=== PATIENT | male | born 1950 | race Caucasian/White ===

== ENCOUNTER → 2020-06-15 | Outpatient (CLI) | payer MEDICARE, BC | END | disposition home or self-care (01) | LOC: LABWHC1 16:30 | PROVIDERS: ATTEND Internal Medicine | DX: U07.1 COVID-19 (principal) | CPT/HCPCS: U0003; C9803 ==

== ENCOUNTER → 2021-06-22 | Outpatient (CLI) | payer MEDICARE, BC ==
--- NOTE | 2021-06-22 16:36 | FL ---
EXAMINATION TYPE: FL barium swallow DATE OF EXAM: 06/22/2021 COMPARISON: None HISTORY: Dysphasia food sticking in throat x2 months TECHNIQUE: Double air contrast technique FINDINGS: Fluoroscopy time: 20 seconds. Images: 122 The esophagus dilates to normal caliber and has a normal contour the gastroesophageal junction. A few tertiary contractions are evident during the examination. There is some hesitancy of emptying the es ophagus during the exam. No gastroesophageal junction stenosis is evident. There is incomplete stripp ing of the esophageal bolus in the horizontal drinking position. A "lesion" was reported by the patie nt. No discrete abnormality to account for this finding is evident on the esophagram IMPRESSION: 1. Mild presbyesophagus.
== END | disposition home or self-care (01) ==
LOC: RADUSWWP 09:51
PROVIDERS: ATTEND Otolaryngology
DX: K22.89 Other specified disease of esophagus (principal)
CPT/HCPCS: 74220

== ENCOUNTER → 2021-11-14 | Outpatient (CLI) | payer MEDICARE, BC ==
--- NOTE | 2021-11-14 15:00 | XR ---
EXAMINATION TYPE: XR chest 2V DATE OF EXAM: 11/14/2021 2:52 PM COMPARISON: None TECHNIQUE: XR chest 2V Frontal and lateral views of the chest. CLINICAL INDICATION:Male, 71 years old with history of R06.02 SOB; FINDINGS: Lungs/Pleura: There is no evidence of pleural effusion, focal consolidation, or pneumothorax. Pulmonary vascularity: Unremarkable. Heart/mediastinum: Cardiomediastinal silhouette is unremarkable. Musculoskeletal: No acute osseous pathology. IMPRESSION: No acute cardiopulmonary disease/process.
== END | disposition home or self-care (01) ==
LOC: RADXRMAIN 14:36
PROVIDERS: ATTEND Nurse Practitioner Family
DX: R06.02 Shortness of breath (principal)
CPT/HCPCS: 71046

== ENCOUNTER → 2021-12-06 | Outpatient (CLI) | payer MEDICARE, BC ==
--- NOTE | 2021-12-06 12:54 | CA ---
Exercise Stress Test Report Name: Garcia Burgos Exam Date: 12/06/2021 10:51 Exam Location: [facility] Stress Ht (in): 71 Wt (lb): 192 BSA: 2.07 Ordering Phys: Grayson Jacob MD Referring Phys: Sarah Xavier [facility] Technologist: Des Sky Age: 71 Gender: M : 1950 Procedure CPT: Indications: R07.9 CHEST PAIN ICD-10 Codes: Patient History: Family history of heart disease Medications: Meds past 24 hrs: Pretest Chest Pain: STRESS TEST Bonifacio Protocol Exercise Duration (min:sec): 07:[address] Depressions (mm): 2 Angina Score: 0 Das Score: -2.88 Resting HR (bpm): 71 Peak HR (bpm): 125 Resting BP (mmHg): 133 / 87 Peak BP (mmHg): 187 / 73 MPHR: 149 Target HR: 127 % MPHR: 84 METS: 8.9 Total Dose: Peak Dose: Atropine: Double Product: 26139 BP Response: Normal Resting Blood Pressure - Appropriate Stress Termination: Dizziness Stress Symptoms: Dizziness Stress Summary: The patient's target heart rate was achieved ECG ANALYSIS Resting ECG: Sinus rhythm. Normal conduction. No arrhythmias. Normal repolarization. Stress EC mm ST horizontal change. During stress in the inferolateral leads. CONCLUSIONS 1. Good exercise tolerance 2. Abnormal electrocardiographic stress testing with [address] depression at peak exercise that resolved in recovery. 3. No associated chest discomfort 4. If clinically indicated an imaging stress test will be helpful Dr. Zen Lee MD (Electronically Signed) Final Date: 06 December 2021 12:53
== END | disposition home or self-care (01) ==
LOC: RADNMMAIN 10:30
PROVIDERS: ATTEND Internal Medicine Geriatric Medicine
DX: R07.9 Chest pain, unspecified (principal); R94.31 Abnormal electrocardiogram [ECG] [EKG]
CPT/HCPCS: 93017

== ENCOUNTER → 2021-12-27 | Outpatient (CLI) | payer MEDICARE, BC ==
[2021-12-27 15:37] LABS: HCT 37.1 % (39.6-50.0); HGB 11.9 g/dL (13.0-17.0); MCH 29.7 pg (27.0-32.0); MCHC 32.1 g/dL (32.0-37.0); MCV 92.5 fL (80.0-97.0); Mean Platelet Volume 9.9 fL (9.5-12.2); NRBC Per 100 WBC 0 /100 WBCS (0.0-0.0); Platelet Count 262 X 10*3/uL (140-440); RBC 4.01 X 10*6/uL (4.40-5.60); RDW 13.7 % (11.5-14.5); WBC 5.81 X 10*3/uL (4.50-10.00)
[2021-12-27 16:07] LABS: Chol/HDL Ratio 9.33 Ratio; LDL Cholesterol,Calculated 249.3 mg/dL (0.0-131.0)
[2021-12-27 16:45] LABS: ALT 15 U/L (10-49); AST 18 U/L (14-35); African American GFR (CKD) 104.2 (60.0-200.0); Blood Urea Nitrogen 13.8 mg/dL (9.0-27.0); Carbon Dioxide 25.1 mmol/L (20.0-27.5); Chloride 104 mmol/L (96-109); Non-African American GFR(CKD) 89.9 (60.0-200.0); Potassium 4.6 mmol/L (3.5-5.5); Sodium 140 mmol/L (135-145)
== END | disposition home or self-care (01) ==
LOC: LABPAT 09:23
PROVIDERS: ATTEND Internal Medicine Interventional Cardiology
DX: Z01.812 Encounter for preprocedural laboratory examination (principal); E78.2 Mixed hyperlipidemia; R94.31 Abnormal electrocardiogram [ECG] [EKG]
CPT/HCPCS: 80051; 80061; 82565; 84450; 84460; 84520; 85027

== ENCOUNTER 2022-01-04 07:59 | Day surgery (SDC) | payer MEDICARE, BC ==
[~2022-01-04 07:59] MED LIST: ALPRAZolam 0.25 MG TAB PO PRN; ALPRAZolam 0.5 MG TAB PO PRN; ASPIRIN 325 MG TAB PO STA; ATORVASTATIN 80 MG TAB PO STA; HEPARIN SODIUM,PORCINE 10,000 UNIT in SODIUM CHLORIDE 0.9% 1,000 ML IRRIGATION PRN; HEPARIN SODIUM,PORCINE 2,500 UNIT in SODIUM CHLORIDE 0.9% 250 ML IRRIGATION PRN; NITROGLYCERIN SL TABS 0.4 MG TAB SUBLINGUAL PRN
[2022-01-04] MEDS: SODIUM CHLORIDE 0.9% 1,000 ML in EMPTY BAG 1 BAG IV SCH ×2 (08:18→13:14)
[2022-01-04] MEDS ORDERED: VERAPAMIL 2.5 MG/ML 2 ML AMP ONE (10:07)
[2022-01-04] MEDS ORDERED: HEPARIN SODIUM 1,000 UN/ML (10ML VL) ONE (10:22)
[2022-01-04] MEDS ORDERED: fentaNYL (PF) 50 MCG/ML 2 ML AMP ONE (10:22)
[2022-01-04] MEDS ORDERED: LIDOCAINE 1% INJ 10MG/ML (30 ML VIAL-PF) SQ ONE (10:51)
[2022-01-04] MEDS ORDERED: fentaNYL (PF) 50 MCG/ML 2 ML AMP IV ONE (10:51)
[2022-01-04] MEDS ORDERED: VERAPAMIL SYRINGE (5 MG/10 ML) INTRAARTER ONE (10:54)
[2022-01-04] MEDS: HEPARIN SODIUM 1,000 UN/ML (10ML VL) IV ONE ×5 (10:58→11:55)
[2022-01-04] MEDS ORDERED: PRASUGREL 10 MG TAB ONE (11:07)
[2022-01-04] MEDS ORDERED: PRASUGREL 10 MG TAB PO ONE (11:10)
[2022-01-04] MEDS ORDERED: IOPAMIDOL-370 100ML BTL INJ ONE ×2 (11:17→11:53)
[2022-01-04] MEDS ORDERED: MAG HYDROX/AL HYDROX/SIMETH 30 ML CUP PO PRN (12:07)
[2022-01-04] MEDS ORDERED: RX INFO: IV CONTRAST WAS GIVEN 1 EACH MISC MISCELLANE PRN (12:07)
[2022-01-04] MEDS ORDERED: ATROPINE SULFATE 0.1 MG/ML 10ML SYRINGE IV PRN (12:07)
[2022-01-04] MEDS ORDERED: NITROGLYCERIN SL TABS 0.4 MG TAB SUBLINGUAL PRN (12:07)
[2022-01-04] MEDS ORDERED: ZOLPIDEM 5 MG TAB PO PRN (12:07)
[2022-01-04] MEDS ORDERED: SODIUM CHLORIDE 0.9% 1,000 ML in EMPTY BAG 1 BAG IV SCH (12:15)
--- NOTE | 2022-01-04 12:15 | P.CARDCATH ---
Date of Procedure: 01/04/22 Description of Procedure: Cardiac Catheterization: The patient is a 71-year-old male with known history of hyperlipidemia who presented with symptoms of dyspnea on exertion and had an abnormal stress test. Recommendations were made regarding cardiac catheterization, the risks and the complications were discussed with the patient who is in full understanding and agreement. Procedure Description: Patient was brought to catheterization laboratory technician in fasting semi-sedated state after receiving Fentanyl and Benadryl achieiving moderate conscious sedated state. Using Xylocaine Anesthesia and Seldinger technique, a 6-Belgian sheath was introduced in the right radial artery . Subsequently, selective coronary angiography was performed using a 5-Belgian 3.5 bend Asmita catheter. Multiple views of the coronary artery including hemiaxial views were obtained. The 5-Belgian Pigatail catheter was used to cross the aortic valve and LVEDP was calculated. Following that, catheter were removed.. There was no immediate complication. Of note, the patient received a total of 4500 units of intravenous heparin as well as intra-arterial verapamil. Findings: Fluoroscopy: Calcification of the coronary arteries was noted Left main: This is a large size vessel, bifurcating into LAD and left circumflex, left main has no high-grade stenosis. LAD: This is a large size vessel, giving rise to 2 diagonal branch. The proximal LAD has an eccentric 85-90% stenosis. Mid LAD has mild disease of 20- 30% Left circumflex: This is a nondominant vessel, giving rise to 3 OM branch. The second OM branch has a 70% stenosis proximally. RCA: This is a dominant vessel, bifurcating distally into PDA and PLV. Has a superior takeoff. The mid RCA is subtotally occluded with bridging collaterals and slow flow in the PDA and PLV. Collaterals: There is collaterals from the LAD toward the right PDA. Left Ventriculogram: Not performed Hemodynamics: There was no gradient across the aortic valve, LVEDP was 14-16 mmHg Conclusion: 1. Calcified coronary arteries 2. Chronically occluded mid RCA with collaterals to the LAD and bridging collat erals 3. Moderate significant disease in the OM 2 4. Right dominance Recommendations: I discussed with the patient the findings I discussed with him both options of CABG versus stenting of the LAD and observing his symptoms. He was in favor of proceeding with LAD stenting.
--- NOTE | 2022-01-04 12:20 | P.CARDCATH ---
Date of Procedure: 01/04/22 Description of Procedure: PERCUTANEOUS TRANSLUMINAL CORONARY ANGIOPLASTY CLINICAL INFORMATION: The patient is a 71-year-old male who presented with symptoms of dyspnea on exertion and had an abnormal stress test. He underwent cardiac catheterization that showed a chronically occluded RCA and critical sten osis in the proximal LAD. The options were discussed with the patient and he was in favor of proceeding with angioplasty of the LAD and depending on his symptoms attempt to recanalize the RCA. Recommendations were made regarding angioplasty and stenting. The procedure as well as the risks and the complications were discussed with the patient who was in full understanding and agreement. PROCEDURE: A 6 Chinese EBU 3.75 guiding catheter was introduced into the system. After cannulating the left main, a 0.014 BMW J was advanced across the lesion and positioned distally. Following that a 3.0 x 12 mm NC Treck balloon was advanced and inflated at 10 atmosphere. Following that an IVUS [place] eye catheter was introduced and imaging were obtained. After removing the catheter a 4.0 x 23 mm Xience vita point stent was deployed. It was dilated at 16. After removing the balloon a 3.25 x 12 mm Xience vita point stent was deployed distal to the first one and deployed at 14 raf. After removing the balloon repeat ultrasound imaging was performed. Subsequently a 4.0 x 20 mm NC Treck balloon was advanced and one inflation at 12 raf distally was performed and after removing the balloon of 5.0 x 20 mm NC Treck with advanced and one inflation at 12 raf proximally was performed. After the last inflation, after appropriate wait, the balloon and the guidewire were withdrawn back into the g uiding catheter. Images were obtained and repeated. Those images reveal stable successful stenting. At that point, the guiding catheter, the balloon, and guidewire were removed. The sheath was removed. Hemostasis was obtained with deployment of a TR band. There were no immediate complications. The patient was returned to the room in stable condition. Of note, the patient received total of 11,000 units of heparin as well as Effient. His ACT was followed. There was no immediate complications. He had chest discomfort and EKG changes that resolved at the end of the procedure RESULTS: Successful stenting of the proximal LAD with reduction of stenosis from 85% to less than 5% . RECOMMENDATIONS: The patient will be continued on aspirin and Effient for at least 6 months in addition to aggressive coronary risks modifications. Depending on his symptoms decision to recanalize the RCA will be made here The findings and recommendations were discussed with the patient and the family, they are in full understanding and agreement. Duration of sedation: 64 minutes
[2022-01-04 12:59] VITALS: BMI 26.7
[2022-01-04] MEDS ORDERED: ACETAMINOPHEN TAB 500 MG TAB PO PRN (13:58)
[2022-01-04] MEDS: METOPROLOL TARTRATE 25 MG TAB PO SCH (20:05)
[2022-01-05] MEDS ORDERED: PANTOPRAZOLE 40 MG TABLET PO SCH (09:00)
[2022-01-05] MEDS ORDERED: ATORVASTATIN 40 MG TAB PO SCH (09:00)
[2022-01-05] MEDS ORDERED: PRASUGREL 10 MG TAB PO SCH (09:00)
[2022-01-05] MEDS ORDERED: ASPIRIN 81 MG PO SCH (09:00)
[2022-01-05] MEDS: SODIUM CHLORIDE 0.9% 1,000 ML in EMPTY BAG 1 BAG IV SCH (09:41)
[2022-01-05] MEDS: METOPROLOL TARTRATE 25 MG TAB PO SCH (09:45)
--- NOTE | 2022-01-05 12:42 | P.DS ---
Providers Date of admission: 01/04/2022 Expected date of discharge: 01/05/22 Attending physician: Zen Lee Consults: 01/04/22 12:07 Consult Physician Routine Consulting Provider: [facility] Consult Reason/Comments: Post Interventional patient Do you want consulting provider notified?: Already Contacted Primary care physician: [facility] Hospital Course: The patient is a 71-year-old male with history of hyperlipidemia who presented with symptoms of dyspnea on exertion and had an abnormal stress test. He underwent cardiac catheterization that showed a chronically occluded RCA and critical stenosis in the proximal LAD. The options were discussed with the patient and he was in favor of proceeding with angioplasty of the LAD and depending on his symptoms attempt to recanalize the RCA. He underwent successful stenting of the proximal LAD with reduction of stenosis from 85% to less than 5%. He was initiated on aspirin and effient which he will continue for at least 6 months in addition to massive coronary risk modifications. He'll be discharged home today. We will see him in the office in the next week. Depending on his symptoms further recommendations will be made in regards to possible intervention of the RCA. His lungs are clear. Rate and rhythm are regular. He has no edema. Right radial puncture site is soft with 2+ pulses no ecchymosis at the site. He does have area of ecchymosis in the right medial mid arm. He is overall feeling better. He's had no complaints of chest discomfort or shortness of breath. He's had no palpitations. No orthopnea or PND. Plan - Discharge Summary Discharge Rx Participant: No New Discharge Prescriptions: New Atorvastatin [Lipitor] 40 mg PO DAILY #90 tab Prasugrel [Effient] 10 mg PO DAILY #90 tab Metoprolol Tartrate [Lopressor] 25 mg PO BID #180 tab Nitroglycerin Sl Tabs [Nitrostat] 0.4 mg SUBLINGUAL Q5M PRN #25 tab PRN Reason: Chest Pain Continue Multivit-Min/FA/Lycopen/Lutein [Centrum Silver Men Tablet] 1 each PO DAILY Cetirizine HCl [Zyrtec] 10 mg PO DAILY Famotidine [Zantac-360 (Famotidine)] 10 mg PO DIRECTED PRN PRN Reason: Heartburn Pantoprazole [Protonix] 40 mg PO DAILY Acetaminophen [Tylenol Extra Strength] 1,000 mg PO TID PRN PRN Reason: Pain Triamcinolone Acetonide [Nasacort] 1 spray EA NOSTRIL QAM Aspirin [Adult Low Dose Aspirin EC] 81 mg PO DAILY Discontinued [place]-3S/Dha/Epa/Fish Oil [[place]-3 Fish Oil 1,000 mg Sfgl] 2 each PO BID Discharge Medication List Acetaminophen [Tylenol Extra Strength] 1,000 mg PO TID PRN 06/04/21 [History] Multivit-Min/FA/Lycopen/Lutein [Centrum Silver Men Tablet] 1 each PO DAILY 06/04/21 [History] Pantoprazole [Protonix] 40 mg PO DAILY 06/04/21 [History] Aspirin [Adult Low Dose Aspirin EC] 81 mg PO DAILY 01/01/22 [History] Cetirizine HCl [Zyrtec] 10 mg PO DAILY 01/01/22 [History] Famotidine [Zantac-360 (Famotidine)] 10 mg PO DIRECTED PRN 01/01/22 [History] Triamcinolone Acetonide [Nasacort] 1 spray EA NOSTRIL QAM 01/01/22 [History] Atorvastatin [Lipitor] 40 mg PO DAILY #90 tab 01/05/22 [Rx] Metoprolol Tartrate [Lopressor] 25 mg PO BID #180 tab 01/05/22 [Rx] Nitroglycerin Sl Tabs [Nitrostat] 0.4 mg SUBLINGUAL Q5M PRN #25 tab 01/05/22 [Rx] Prasugrel [Effient] 10 mg PO DAILY #90 tab 01/05/22 [Rx] Follow up Appointment(s)/Referral(s): Zen Lee MD [STAFF PHYSICIAN] - 01/08/22 11:00 am (Add on with 's office visit) Patient Instructions/Handouts: Moderate Sedation (DC), After Radial Heart Catheterization (GEN) Activity/Diet/Wound Care/Special Instructions: *NO LIFTING, PUSHING OR PULLING ANYTHING OVER 5 POUNDS FOR 5 DAYS *NO DRIVING FOR 3 DAYS *YOU CAN REMOVE YOUR DRESSING AND SHOWER TOMORROW BUT DO NOT SUBMERSE YOUR PUNCTURE SITE IN WATER FOR A FEW DAYS TO PREVENT INFECTION - SO NO TUB BATHS, POOLS, HOT TUBS, DISHES...ETC *ANY SIGNS OF BLEEDING (HARDNESS, SWELLING, OR EXCESSIVE BRUISING) HOLD DIRECT PRESSURE ON YOUR PUNCTURE SITE AND COME TO THE NEAREST EMERGENCY ROOM TO GET YOUR PUNCTURE SITE LOOKED AT - DO NOT DRIVE YOURSELF! EITHER CALL EMS OR HAVE SOMEONE DRIVE YOU!
[2022-01-05 14:08] VITALS: RESP 18; TEMP 97.9
[2022-01-05 15:47] VITALS: BP 123/72; PULSE 74
== END 2022-01-05 15:30 | disposition home or self-care (01) ==
LOC: CATHCVL 07:59 → 6NMEDSUR 12:04 → CATHCVL 01-05 15:30
PROVIDERS: ATTEND Internal Medicine Interventional Cardiology
DX: I25.10 Atherosclerotic heart disease of native coronary artery without angina pectoris (principal); E78.2 Mixed hyperlipidemia; R06.02 Shortness of breath; E78.5 Hyperlipidemia, unspecified; Z79.82 Long term (current) use of aspirin; Z95.5 Presence of coronary angioplasty implant and graft
CPT/HCPCS: 94760; 93458; C9600; J2001; J3010; J1644; Q9967

== ENCOUNTER 2023-01-06 19:15 | Emergency (ER) | payer MEDICARE, BC ==
[2023-01-06 19:37] VITALS: BP 145/83; PULSE 67; RESP 17; TEMP 98.3
[2023-01-06] MEDS ORDERED: methylPREDNISolone SOD SUCCI 125 MG/2 ML VIAL IM ONE (19:37)
--- NOTE | 2023-01-06 19:44 | ED ---
General Adult HPI - General Chief complaint: Skin/Abscess/Foreign Body Stated complaint: poision neda Time Seen by Provider: 01/06/23 19:22 Source: patient, family, RN notes reviewed Mode of arrival: ambulatory Limitations: no limitations - History of Present Illness Initial comments: Patient is a pleasant 72-year-old male presenting to the emergency department rash. Onset was 3 days ago. 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 Patient believes he got poison neda. Patient has rash and itching to the right side of his face and right arm. Right facial rash has improved slightly. Itching continues. No dyspnea or face or tongue or lip swelling. - Related Data Home Medications Medication Instructions Recorded Confirmed Acetaminophen [Tylenol Extra 1,000 mg PO TID PRN 06/04/21 01/04/22 Strength] Mv-Min/Folic/K1/Lycopen/Lutein 1 each PO DAILY 06/04/21 01/04/22 [Centrum Silver Men Tablet] Pantoprazole [Protonix] 40 mg PO DAILY 06/04/21 01/04/22 Aspirin [Adult Low Dose Aspirin EC] 81 mg PO DAILY 01/01/22 01/04/22 Cetirizine HCl [Zyrtec] 10 mg PO DAILY 01/01/22 01/04/22 Famotidine [Zantac-360 10 mg PO DIRECTED PRN 01/01/22 01/04/22 (Famotidine)] Triamcinolone Acetonide [Nasacort] 1 spray EA NOSTRIL QAM 01/01/22 01/04/22 Previous Rx's Medication Instructions Recorded Atorvastatin [Lipitor] 40 mg PO DAILY #90 tab 01/05/22 Metoprolol Tartrate [Lopressor] 25 mg PO BID #180 tab 01/05/22 Nitroglycerin Sl Tabs [Nitrostat] 0.4 mg SUBLINGUAL Q5M PRN #25 tab 01/05/22 Prasugrel [Effient] 10 mg PO DAILY #90 tab 01/05/22 predniSONE [Deltasone] 20 mg PO BID #10 tab 01/06/23 Allergies Allergy/AdvReac Type Severity Reaction Status Date / Time morphine Allergy Nausea & Verified 01/06/23 19:18 Vomiting Review of Systems ROS Statement: Those systems with pertinent positive or pertinent negative responses have been documented in the HPI. ROS Other: All systems not noted in ROS Statement are negative. 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 History of Any Multi-Drug Resistant Organisms: None Reported Date of last positivie culture/infection: 2016 MDRO Source:: left heand Past Surgical History: Appendectomy Additional Past Surgical History / Comment(s): left hand surgery Past Anesthesia/Blood Transfusion Reactions: Motion Sickness, Postoperative Nausea & Vomiting (PONV) Past Psychological History: No Psychological Hx Reported Smoking Status: Never smoker Past Alcohol Use History: Occasional Past Drug Use History: None Reported - Past Family History Mother Family Medical History: Cancer Additional Family Medical History / Comment(s): breast cancer Brother(s) Family Medical History: Cancer Additional Family Medical History / Comment(s): lung cancer Sister(s) Family Medical History: Cancer Additional Family Medical History / Comment(s): lung cancer General Exam Limitations: no limitations General appearance: alert, in no apparent distress Head exam: Present: normocephalic Eye exam: Present: normal appearance ENT exam: Present: normal oropharynx, other (No angioedema of the lip or tongue or throat.) Neck exam: Present: normal inspection Respiratory exam: Present: normal lung sounds bilaterally Cardiovascular Exam: Present: regular rate, normal rhythm Extremities exam: Present: normal inspection Neurological exam: Present: alert Psychiatric exam: Present: normal affect, normal mood Skin exam: Present: other (Erythema approximately 30% of the right forearm, more before volar and distally. There is also some erythema right lateral face and ear with some mild swelling.) Course Vital Signs 01/06/23 19:16 Temperature 98.3 F Pulse Rate 67 Respiratory 17 Rate Blood Pressure 145/83 O2 Sat by Pulse 96 Oximetry Medical Decision Making - Medical Decision Making Was pt. sent in by a medical professional or institution ([facility], [facility], urgent care, hospital, or usp...) When possible be specific @ -No Did you speak to anyone other than the patient for history (EMS, parent, family, police, friend...)? What history was obtained from this source @ - is present and helps provide history including the patient has tried steroid creams Did you review nursing and triage notes (agree or disagree)? Why? @ -I reviewed and agree with nursing and triage notes Were old charts reviewed (outside hosp., previous admission, EMS record, old EKG, old radiological studies, urgent care reports/EKG's, usp records)? Report findings @ -No old charts were reviewed Differential Diagnosis (chest pain, altered mental status, abdominal pain women, abdominal pain men, vaginal bleeding, weakness, fever, dyspnea, syncope, headache, dizziness, GI bleed, back pain, seizure, CVA, palpatations, mental health, musculoskeletal)? @ -not applicable EKG interpreted by me (3pts min.). @ -As above X-rays interpreted by me (1pt min.). @ -None done CT interpreted by me (1pt min.). @ -None done U/S interpreted by me (1pt. min.). @ -None done What testing was considered but not performed or refused? (CT, X-rays, U/S, labs)? Why? @ -None What meds were considered but not given or refused? Why? @ -None Did you discuss the management of the patient with other professionals (professionals i.e. [facility], [facility] CONSULTANT, lab, RT, psych nurse, social work associate, soaking pits supervisor, teacher, accounting officer, case specialist)? Give summary @ -No Was smoking cessation discussed for >3mins.? @ -No Was critical care preformed (if so, how long)? @ -No Were there social determinants of health that impacted care today? How? (Homelessness, low income, unemployed, alcoholism, drug addiction, transportation, low edu. Level, literacy, decrease access to med. care, correction, rehab)? @ -No Was there de-escalation of care discussed even if they declined (Discuss DNR or withdrawal of care, Hospice)? DNR status @ -No What co-morbidities impacted this encounter? (DM, HTN, Smoking, COPD, CAD, Cancer, CVA, ARF, Chemo, Hep., AIDS, mental health diagnosis, sleep apnea, morbid obesity)? @ -None Was patient admitted / discharged? Hospital course, mention meds given and route, prescriptions, significant lab abnormalities, going to OR and other pertinent info. @ -Before meals presents with exposure to poison neda. Patient does request a steroid shot and this will be provided. Patient will also receive prescription. Patient advised follow-up with his doctor. Undiagnosed new problem with uncertain prognosis? @ -No Drug Therapy requiring intensive monitoring for toxicity (Heparin, Nitro, Insulin, Cardizem)? @ -No Were any procedures done? @ -No Diagnosis/symptom? @ -Contact dermatitis Acute, or Chronic, or Acute on Chronic? @ -Acute Uncomplicated (without systemic symptoms) or Complicated (systemic symptoms)? @ -default Side effects of treatment? @ -No Exacerbation, Progression, or Severe Exacerbation? @ -No Poses a threat to life or bodily function? How? (Chest pain, [place], [place], pneumonia, PE, COPD, DKA, ARF, appy, cholecystitis, CVA, Diverticulitis, Homicidal, Suicidal, threat to staff... and all critical care pts) @ -No Disposition Clinical Impression: Contact dermatitis Disposition: HOME SELF-CARE Condition: Stable Instructions (If sedation given, give patient instructions): Contact Dermatitis (ED) Additional Instructions: Prescription sent to pharmacy. Please do follow-up to primary care physician in the next couple days for recheck. Return for increased swelling, difficulty breathing, worsening symptoms or other concerns. Prescriptions: predniSONE [Deltasone] 20 mg PO BID #10 tab Is patient prescribed a controlled substance at d/c from ED?: No Referrals: Grayson Jacob MD [Primary Care Provider] - 1-2 days Time of Disposition: 19:43
== END 2023-01-06 20:12 | disposition home or self-care (01) ==
LOC: EC 19:15
DX: L25.9 Unspecified contact dermatitis, unspecified cause (principal); K21.9 Gastro-esophageal reflux disease without esophagitis; Z79.899 Other long term (current) drug therapy; Z88.5 Allergy status to narcotic agent
CPT/HCPCS: 99282; 96372; J2930